=== PATIENT | female | born 1980 | race Caucasian/White ===

== ENCOUNTER 2021-03-25 09:32 | Outpatient (REF) | payer MEDICARE, MEDICAID, SELFPAY ==
[2021-03-26 02:43] LABS: CT PCR NOT DETECTED (Not Detect.); NG PCR NOT DETECTED (Not Detect.)
[2021-03-26 08:39] LABS: BV Int Neg Control Negative (Negative); BV Int Pos Control Positive (Positive)
[2021-03-28 03:31] LABS: HPV mRNA E6/E7 rflx Not Detected (Not Detected)
== END 2021-03-25 09:33 | disposition home or self-care (01) ==
LOC: HO.LAB 09:32
PROVIDERS: PCP Internal Medicine; Visit Provider Advanced Practice Midwife
DX: Z01.411 Encounter for gynecological examination (general) (routine) with abnormal findings (principal); Z11.51 Encounter for screening for human papillomavirus (HPV); Z11.3 Encounter for screening for infections with a predominantly sexual mode of transmission; R10.2 Pelvic and perineal pain; N94.6 Dysmenorrhea, unspecified; N93.9 Abnormal uterine and vaginal bleeding, unspecified
CPT/HCPCS: 81003; 81025; 87480; 87491; 87510; 87591; 87624; 87660; 88142; 99202

== ENCOUNTER 2021-04-14 10:46 | Outpatient (REF) | payer MEDICARE, MEDICAID, SELFPAY ==
--- NOTE | ~2021-04-14 | US_ITS ---
EXAMINATION: US PELVIC AND TRANSVAGINAL INDICATION: Vaginal bleeding. COMPARISON: None TECHNIQUE: Real-time imaging by the therapeutic dietitian FINDINGS: The uterus is measuring 9 x 5 x 5 cm. Anteverted. The endometrial thickness is measuring 1.2 cm characterized by heterogeneous echogenicity which is mostly increased. Small defect in the lower uterine segment posterior may represent a small fibroid. Measures 1 x 1 cm. The right ovary is 2.4 x 2.7 x 2.7 cm. Volume 9 mL. The left ovary is 2.6 x 2.3 x 1.3 cm. Volume 4 mL. The therapeutic dietitian notes the myometrium is heterogeneous. US/US pelvic and transvaginal IMPRESSION: Endometrial lining is measuring 1.2 cm and characterized by overall irregularity at its interface with the myometrium. Etiology of this is indeterminate. The endometrium is heterogeneous in echogenicity but overall increased. Certainly hyperplasia or polyp formation versus other would be a consideration. Gynecologic consultation would be recommended. The ovaries are within normal limits. No free fluid or obvious adnexal mass.
[2021-04-14 12:30] LABS: Hematocrit 39.1 % (37-47); Hemoglobin 12.5 g/dl (12.0-16.0); Mean Corpuscular Hemoglobin 24.7 pg (27.0-33.0); Mean Corpuscular Volume 77.1 fL (80-98); Mean Platelet Volume 8.6 fL (9.4-12.3); Platelet Count 329 X10*3/uL (160-400); Red Blood Count 5.07 X10*6/uL (4.20-5.50); Red Cell Distribution Width 14.3 % (11.0-16.0); White Blood Count 6.8 X10*3/uL (4.8-10.8)
[2021-04-14 13:42] LABS: Thyroid Stimulating Hormone 0.95 uIU/mL (0.32-4.0)
== END 2021-04-14 10:47 | disposition home or self-care (01) ==
LOC: HO.US 10:46
PROVIDERS: Visit Provider Advanced Practice Midwife
DX: N93.9 Abnormal uterine and vaginal bleeding, unspecified (principal); N94.6 Dysmenorrhea, unspecified; R10.2 Pelvic and perineal pain; N92.1 Excessive and frequent menstruation with irregular cycle
CPT/HCPCS: 36415; 76830; 76856; 84443; 85027

== ENCOUNTER → 2021-04-28 09:49 | Outpatient (BNVA) | payer MEDICARE, MEDICAID, SELFPAY | PROVIDERS: Visit Provider Advanced Practice Midwife | DX: N93.9 Abnormal uterine and vaginal bleeding, unspecified (principal); R10.2 Pelvic and perineal pain; N76.0 Acute vaginitis; B96.89 Other specified bacterial agents as the cause of diseases classified elsewhere; N94.6 Dysmenorrhea, unspecified; D25.9 Leiomyoma of uterus, unspecified | CPT/HCPCS: 81025; 99212 ==

== ENCOUNTER → 2021-06-10 12:11 | Outpatient (BNVA) | payer MEDICARE, MEDICAID, SELFPAY | PROVIDERS: Visit Provider Obstetrics & Gynecology | CPT/HCPCS: 99212 ==

== ENCOUNTER → 2021-06-23 11:39 | Outpatient (BNVA) | payer MEDICARE, MEDICAID, SELFPAY | PROVIDERS: Visit Provider Obstetrics & Gynecology | DX: Z01.818 Encounter for other preprocedural examination (principal); N93.9 Abnormal uterine and vaginal bleeding, unspecified; N94.6 Dysmenorrhea, unspecified; D25.9 Leiomyoma of uterus, unspecified; Z87.891 Personal history of nicotine dependence | CPT/HCPCS: 99212 ==

== ENCOUNTER 2021-07-18 05:54 | Day surgery (SDC) | payer MEDICARE, MEDICAID, SELFPAY ==
[2021-07-18 06:28] VITALS: BP 144/97; PULSE 88; RESP 18; TEMP 35.9; O2SAT 97; BMI 33.9
[2021-07-18 06:31] LABS: UPreg QC Valid YES; Urine Pregnancy NEGATIVE (NEGATIVE)
--- NOTE | 2021-07-18 07:14 | HO.ANESPROP2 ---
PMFSH Active Problems Active Problems: All Active Problems (Updated 06/10/21 @ 12:15 by Rocky Cartwright MD) Uterine fibroid (Acute) Dysmenorrhea (Acute) Abnormal uterine bleeding (AUB) (Acute) Pelvic pain in female (Acute) Past Medical History Medical History ADHD Dysmenorrhea History of anxiety Missed Urinary incontinence Uterine fibroid Surgical History Surgical History Hx of tonsillectomy Social History Social History Alcohol intake: never Patient Tobacco Use Status: Former Tobacco user Use of substances other than those prescribed or required for medical reasons: No Are you DNR?: No Advance Directives: No Advance Directives Information Provided: Yes Sexual orientation: Straight/Heterosexual Gender identity: Female Meds Allergies Allergy/AdvReac Type Severity Reaction Status Date / Time No Known Allergies Allergy Verified 07/11/21 11:50 Home Medications Medication Instructions Recorded Confirmed Last Taken Type chlorthalidone 25 mg tablet 25 mg PO DAILY 03/25/21 07/11/21 Unknown History cholecalciferol (vitamin D3) 50 50 mcg PO DAILY 03/25/21 07/11/21 Unknown History mcg (2,000 unit) tablet dextroamphetamine-amphetamine ER cap PO 03/25/21 07/18/21 History 10 mg 24hr capsule,extend release omeprazole 20 mg capsule,delayed 20 mg PO DAILY 03/25/21 07/11/21 07/18/21 History release Exam Exam Date and Time: July 18, 202114 Height,Weight and Vital Signs: Height 5 ft 6 in Weight 95.254 kg Last Vital Signs Temp 96.6 F L 07/18/21 06:28 Pulse 88 07/18/21 06:28 Resp 18 07/18/21 06:28 BP 144/97 H 07/18/21 06:28 Pulse Ox 97 07/18/21 06:28 Pertinent Lab Results Pertinent Lab Results: Laboratory Tests 07/18/21 06:17 Urine Test NEGATIVE Airway Mallampati Class: I TM Dist: >3cm Neck ROM: Full
[2021-07-18] MEDS: Lactated Ringers 1,000 ML 100 ML IVCONT (07:35)
--- NOTE | 2021-07-18 07:39 | MHC.SHP ---
Pre-Procedural Eval Section A Date of Service: 07/18/21 The patient is an INPATIENT: No Changes since office visit: No Cold of Flu in the past 2 weeks, No New Medical Problems, No Changes in Medication and No Patient answered all questions The History & Physical has been completed within 30 days and I have reviewed it.: Yes Section B Chief Complaint: uterine bleeding Allergies: Allergies Allergy/AdvReac Type Severity Reaction Status Date / Time No Known Allergies Allergy Verified 07/11/21 11:50 Plan Diagnosis/Plan: Unchanged I have reviewed the history and physical and performed a pertinent physical examination on my patient. No changes have occurred unless specified.
--- NOTE | 2021-07-18 08:01 | PM.OP ---
Brief Operative Note Date of Service: 07/18/21 Pre-op diagnosis: Abnormal uterine bleeding Post-op diagnosis: same (Normal endometrial cavity, no evidence of pathology) Procedure: Hysteroscopy D&C Surgeon: Rocky Cartwright MD Anesthesia: MAC Was an Elevator Supervisor used for this Procedure?: No Estimated blood loss (mL): 0 Pathology: other (Endometrial Scrapping) Condition: stable Disposition: PACU
--- NOTE | 2021-07-18 08:02 | P.OP_ITS ---
Operative Note Operative Note Date of Service: 07/18/21 Narrative: Preop Diagnosis: Abnormal uterine bleeding Operation: Diagnostic Hysteroscopy, Dilataion & Curettage Post Op Diagnosis: Normal endometrial cavity QBL: Minimal Anesthesia: MAC Surgeon: Rocky Cartwright MD French Folding Machine Operator: None Complication: None Pathology: Endometrial Scrapings Procedure: The patient was put in the dorsal lithotomy position, scrubbed, and draped in the usual manner. A sterile speculum was inserted in the patient's vagina. The anterior lip of the cervix was grasped with a single tooth tenaculum. The cervix was dilated up to 5 mm, then the scope was inserted in the patient's uterus. Inspection revealed Normal endometrial cavity. Sharp curettings was carried on afterwards with moderate amount of tissues retrieved . At the end of the procedure, all instruments were taken out of the patient uterine and vaginal cavity. The single tooth tenaculum was removed and homeostasis was assured using pressure,. The patient tolerated the procedure well and was transferred to the PACU in a stable condition.
[2021-07-18 08:15] VITALS: BP 120/81; PULSE 86; RESP 16; TEMP 36.3; O2SAT 100
[2021-07-18 08:20] VITALS: BP 126/96; PULSE 98; RESP 81; O2SAT 98
[2021-07-18 08:25] VITALS: BP 121/76; PULSE 88; RESP 18; O2SAT 98
[2021-07-18 08:30] VITALS: BP 137/98; PULSE 85; RESP 18; O2SAT 99
[2021-07-18 08:45] VITALS: BP 120/81; PULSE 77; RESP 18; TEMP 36.3; O2SAT 98
== END 2021-07-18 09:03 | disposition home or self-care (01) ==
PROVIDERS: PCP Internal Medicine; Visit Provider Obstetrics & Gynecology
PROC: 0UDB8ZZ Extraction of Endometrium, Via Natural or Artificial Opening Endoscopic (ICD-10-PCS; CPT 58558; principal; 2021-07-18 07:30)
DX: N93.9 Abnormal uterine and vaginal bleeding, unspecified (principal); N94.6 Dysmenorrhea, unspecified; Z87.42 Personal history of other diseases of the female genital tract; Z87.891 Personal history of nicotine dependence
CPT/HCPCS: 58558; 81025; 88305; J1100; J2250; J2405; J3010

== ENCOUNTER → 2021-08-04 15:50 | Outpatient (BNVA) | payer MEDICARE, MEDICAID, SELFPAY | PROVIDERS: PCP Internal Medicine; Visit Provider Obstetrics & Gynecology | DX: N93.9 Abnormal uterine and vaginal bleeding, unspecified (principal) | CPT/HCPCS: Q3014 ==